=== PATIENT | female | born 1960 | race Caucasian/White ===

== ENCOUNTER 2019-09-18 10:53 | Emergency (ER) | payer SELFPAY ==
[~2019-09-18] VITALS: Ht 154.9 cm; Wt 53.5 kg
--- OUTSIDE RECORDS SUMMARY | 2019-09-18 10:56 | XMS REPORT | Continuity of Care Document ---
Author Author [facility] t Organization [facility] Address [address] [place] [address] Phone Unavailable Care Team Providers Care Quality Supervisor Name Role Phone Unavailable Unavailable Payers Payer Name Policy Type Policy Number Effective Date Expiration Date S ource Problems This patient has no known problems. Allergies, Adverse Reactions, Alerts Allergy Name Allergy Type Status Severity Reaction(s) Onset Date Inacti ve Date Treating Clinician Comments Source No Known Allergies DA Active U 2017-10-30 00:00:00 [facility] Medications This patient has no known medications. Procedures This patient has no known procedures. Results Test Description Test Time Test Comments Results Result Comments Source CHLAMYDIA GC DNA BY PCR 2019-02-02 14:09:00 Test Item C. TRACHOMATIS DNA BY PCR (test code = CHLAMTDNA) Negative Nega tive N. GONORRHOEAE DNA BY PCR (test code = NGONORDNA) Negative Nega tive Performed At: [facility] [place] [address] [id number] gabi Mcdonough MD Ph:[phone] COMPREHENSIVE METABOLIC [id number] 11:41:00* Test Item Value Reference Range Interpretation Comments SODIUM (test code = NA) 136 mEq/L 134-147 N POTASSIUM (test code = K) 3.7 mEq/L 3.4-5.0 N CHLORIDE (test code = CL) 101 mEq/L 100-108 N CARBON DIOXIDE (test code = CO2) 28 mEq/L 21-33 N ANION GAP (test code = GAP) 11 0-20 N GLUCOSE (test code = GLU) 98 mg/dL 70-110 N BLOOD UREA NITROGEN (test code = BUN) 27 mg/dL 7-18 H GLOMERULAR FILTRATION RATE (test code = GFR) 64.5 90-95 L Units of measure = ml/min/1.73 m2 CREATININE (test code = CREAT) 0.9 mg/dL 0.6-1.3 N TOTAL PROTEIN (test code = PROT) 8.0 g/dL 6.4-8.2 N ALBUMIN (test code = ALB) 4.20 g/dL 3.4-5.0 N CALCIUM (test code = CA) 9.7 mg/dL 8.0-10.5 N BILIRUBIN TOTAL (test code = BILT) 0.6 MG/DL <1.5 N SGOT/AST (test code = AST) 13 IUnit/L 15-37 L SGPT/ALT (test code = ALT) 14 IUnit/L 15-65 L ALKALINE PHOSPHATASE TOTAL (test code = ALKP) 121 IUnit/L 20-125 N [id number] 11:41:00* Test Item Value Reference Range Interpretation Comments LIPASE (test code = LIP) 94 IUnit/L 73-393 N HCG SERUM [id number] 11:41:00* Test Item Value Reference Range Interpretation Comments HCG SERUM QUAL (test code = HCGQL) SERUM NEGATIVE NEGATIVE - CT ABD PELVIS W/O [id number] 11:39:00 Name: EMILIE CAREY [facility] : 1960 Age/S: 58 / F [address] [place] [address] Unit #: [id number] Loc: [place] [address] Phys: Maren Tong PLATFORM LOADER Acct: [id number] Dis Date: Status: REG ER PHONE #: [phone] Exam Date: 01/28/2019 1054 FAX #: [phone] Reason: L FLANK LLQ PAIN, DYURIA EXAMS: CPT CODE: [id number] CT ABD PELVIS W/O CONT 31316 PROCEDURE: CT ABDOMEN AND PELVIS WITHOUT CONTRAST (RENAL STONE CT) INDICATION: Left flank and left lower quadrant pain. Dysuria. History of stones. COMPARISON: 10/15/2017 TECHNIQUE: Noncontrasted helical imaging was performed diaphragm through the symphysis as a renal stone protocol with multiplanar reconstructions. CT imaging performed at this location utilizes radiation dose optimization techniques which include one or more of the following: -Automated exposure control -Adjustment of the mA and/or kV according to patient size -Use of iterative reconstruction technique CT Radiation Dose DLP 513.18 mGy-cm LIMITATIONS: Evaluation of abdominal viscera and vascular structures may be limited by the lack of intravenous contrast, which is standard for urinary calculus assessment CT. FINDINGS: KIDNEYS: There is a single nonobstru cting calcification within the mid left renal sinus, 2 mm diameter. There are no ureteral calculi. No hydronephrosis or perinephric edema. The re nal contours are normal. There is a single diminutive exophytic low-atten uation lesion lateral cortex left kidney approximately 5 mm diameter, too small to characterize, stable and compatible with benign cyst. LOWER CHEST: The lung bases are clear. There is a small sliding-type h iatal hernia. Pathologic wall thickening of the distal esophagus not excl uded. No regional inflammation. Subcentimeter paraesophageal nodes are n ot enlarged by size criteria and stable. LIVER: Normal. BILIARY TREE: No biliary dilatation. GALLBLADDER: Normal. SPLEEN: Spleen is normal. Stable accessory splenic lobule. PANCREAS: Mild fatty involutional changes without focal abnormality. PAGE 1 Signed Report (CONTINUED) Name: EMILIE CAREY [facility] : 1960 Age/S: 58 / F [address] [place] [address] Unit #: [id number] Loc: [place] [address] Phys: Cary Tong PLATFORM LOADER Acct: [id number] Di s Date: Status: REG ER PHONE #: Exam Date: 01/28/2019 1055 FAX #: Reason: L FLANK LLQ PAIN, DYURIA EXAMS: CPT CODE: [id number] CT ABD PELVIS W/O CONT 02441 <Continued> ADRENALS: Normal. BOWEL: Small sliding-type hiatal hernia. The stomach is otherwise unremarkable. Small diverticulum 2nd duodenum without inflammation. The small bowel is otherwise unremarkable. The appendix is normal. Scattered fecal material throughout the colon. Scattered left- sided colonic diverticula. No inflammatory changes. PERITONEUM: No free intraperitoneal fluid or air. RETROPERITONEUM: No adenopathy. The aorta is normal. PELVIS: The adnexa are normal by CT. The uterine body is unremarkable. Subjective fullness of the cer vix with slight stranding of regional tissue planes. No adenopathy by siz e criteria. The urinary bladder is contracted, otherwise unremarkable. MUSCULOSKELETAL: The skeleton is intact. IMPRESSION: 1. Nonobstructing left nephrolithiasis. No ureteral calculus or hydronephrosis to indicate urinary obstruction as a source of the pa tient's symptoms. 2. Scattered left-sided colonic diverticula without e vidence for diverticulitis. 3. Nonspecific fullness of the cerv ix with stranding of regional tissue planes. Cervical neoplasm and infl ammation remain in the differential. SYRUPER consultation is suggested. 4. Small sliding-type hiatal hernia. Wall thickening of the distal esophagus not excluded. This may be physiologic. Esophagitis in the differential. Please correlate clinically with further imaging as kareem dozier. A verbal report was called to Maren Tong NP on 11:39 AM. SL: RAZ at [phone] Reported and signed b y: Malcolm Anderson M.D. PAGE 2 Signed Report (CONTINUED) Name: EMILIE CAREY [facility] Reed Snowden : 1960 Age/S: 58 / F [address] [place] [address] Unit #: [id number] Loc: [place] [address] Phys: Maren Tong NP Acct: [id number] Dis Date: Status: REG ER PHONE #: [phone] Exam Date: 01/28/2019 1054 FAX #: [phone] Reason: L FLANK LLQ PAIN, DYURIA EXAMS: CPT CODE: [id number] CT ABD PELVIS W/O CONT 23876 < Continued> CC: Maren Tong NP Technologist:RT Tamela(R)(CT) CTDI: DLP: Trnscb Date/Time: 01/28/2019 (1137) Poonam Orig Print D/T: S: 01/28/2019 (1842) PAGE 3 Signed Report COMPREHENSIVE METABOLIC PANEL 2019-01-28 11:35:00* Test Item Value Reference Range Interpretation Comments SODIUM (test code = NA) 136 mEq/L 134-147 N POTASSIUM (test code = K) 3.7 mEq/L 3.4-5.0 N CHLORIDE (test code = CL) 101 mEq/L 100-108 N CARBON DIOXIDE (test code = CO2) 28 mEq/L 21-33 N ANION GAP (test code = GAP) 11 0-20 N GLUCOSE (test code = GLU) 98 mg/dL 70-110 N BLOOD UREA NITROGEN (test code = BUN) 27 mg/dL 7-18 H GLOMERULAR FILTRATION RATE (test code = GFR) 90-95 CREATININE (test code = CREAT) mg/dL 0.6-1.3 TOTAL PROTEIN (test code = PROT) g/dL 6.4-8.2 ALBUMIN (test code = ALB) 4.20 g/dL 3.4-5.0 N CALCIUM (test code = CA) 9.7 mg/dL 8.0-10.5 N BILIRUBIN TOTAL (test code = BILT) MG/DL <1.5 SGOT/AST (test code = AST) IUnit/L 15-37 SGPT/ALT (test code = ALT) IUnit/L 15-65 ALKALINE PHOSPHATASE TOTAL (test code = ALKP) IUnit/L 20-125 [id number] 11:35:00* Test Item Value Reference Range Interpretation Comments LIPASE (test code = LIP) IUnit/L 73-393 HCG SERUM [id number] 11:35:00* Test Item Value Reference Range Interpretation Comments HCG SERUM QUAL (test code = HCGQL) SERUM NEGATIVE NEGATIVE COMPREHENSIVE METABOLIC [id number] 11:34:00* Test Item Value Reference Range Interpretation Comments SODIUM (test code = NA) mEq/L 134-147 POTASSIUM (test code = K) mEq/L 3.4-5.0 CHLORIDE (test code = CL) mEq/L 100-108 CARBON DIOXIDE (test code = CO2) mEq/L 21-33 ANION GAP (test code = GAP) 0-20 GLUCOSE (test code = GLU) mg/dL 70-110 BLOOD UREA NITROGEN (test code = BUN) mg/dL 7-18 GLOMERULAR FILTRATION RATE (test code = GFR) 90-95 CREATININE (test code = CREAT) mg/dL 0.6-1.3 TOTAL PROTEIN (test code = PROT) g/dL 6.4-8.2 ALBUMIN (test code = ALB) g/dL 3.4-5.0 CALCIUM (test code = CA) mg/dL 8.0-10.5 BILIRUBIN TOTAL (test code = BILT) MG/DL <1.5 SGOT/AST (test code = AST) IUnit/L 15-37 SGPT/ALT (test code = ALT) IUnit/L 15-65 ALKALINE PHOSPHATASE TOTAL (test code = ALKP) IUnit/L 20-125 [id number] 11:34:00* Test Item Value Reference Range Interpretation Comments LIPASE (test code = LIP) IUnit/L 73-393 HCG SERUM [id number] 11:34:00* Test Item Value Reference Range Interpretation Comments HCG SERUM QUAL (test code = HCGQL) SERUM NEGATIVE NEGATIVE CBC W/AUTO [id number] 11:27:00* Test Item Value Reference Range Interpretation Comments WHITE BLOOD CELL (test code = WBC) 10.12 x10 3/uL 4.5-11.0 N RED BLOOD CELL (test code = RBC) 4.86 x10 6/uL 3.54-5.02 N HEMOGLOBIN (test code = HGB) 15.1 g/dL 11.0-15.0 H HEMATOCRIT (test code = HCT) 44.6 % 33.0-45.0 N MEAN CELL VOLUME (test code = MCV) 91.8 fL 81.0-99.0 N MEAN CELL HGB (test code = MCH) 31.1 pg 27.0-33.0 N MEAN CELL HGB CONCETRATION (test code = MCHC) 33.9 g/dL 33.0-37. 0 N RED CELL DISTRIBUTION WIDTH CV (test code = RDW) 12.5 % 11.5- 14.5 N RED CELL DISTRIBUTION WIDTH SD (test code = RDW-SD) 42.5 fL 37 .0-54.0 N PLATELET COUNT (test code = PLT) 391 x10 3/uL 150-400 N MEAN PLATELET VOLUME (test code = MPV) 10.7 fL 7.0-9.0 H NEUTROPHIL % (test code = NT%) 74.5 % 56.0-77.0 N IMMATURE GRANULOCYTE % (test code = IG%) 0.3 % 0.0-2.0 N LYMPHOCYTE % (test code = LY%) 16.4 % 14.0-32.0 N MONOCYTE % (test code = MO%) 6.4 % 4.8-9.0 N EOSINOPHIL % (test code = EO%) 1.0 % 0.3-3.7 N BASOPHIL % (test code = BA%) 1.4 % 0.0-2.0 N NUCLEATED RBC % (test code = NRBC%) 0.0 % 0-0 N NEUTROPHIL # (test code = NT#) 7.54 x10 3/uL 2.0-7.6 N IMMATURE GRANULOCYTE # (test code = IG#) 0.03 x10 3/uL 0.00-0.03 N LYMPHOCYTE # (test code = LY#) 1.66 x10 3/uL 1.0-3.8 N MONOCYTE # (test code = MO#) 0.65 x10 3/uL 0.1-0.8 N EOSINOPHIL # (test code = EO#) 0.10 x10 3/uL 0.0-0.2 N BASOPHIL # (test code = BA#) 0.14 x10 3/uL 0.0-0.2 N NUCLEATED RBC # (test code = NRBC#) 0.00 x10 3/uL 0.0-0.1 N MANUAL DIFF REQUIRED (test code = MDIFF) NO UA RFLX MICR CULT IF [id number] 11:13:00* Test Item Value Reference Range Interpretation Comments UA COLOR (test code = COLU) YELLOW YEL/STRAW UA APPEARANCE (test code = APPU) SL CLOUDY CLEAR UA GLUCOSE DIPSTICK (test code = DGLUU) NEGATIVE NEGATIVE UA BILIRUBIN DIPSTICK (test code = BILU) NEGATIVE NEGATIVE UA KETONE DIPSTICK (test code = KETU) TRACE NEGATIVE A UA SPECIFIC GRAVITY (test code = SGU) 1.024 1.005-1.030 N UA BLOOD DIPSTICK (test code = CALISTA) 3+ NEGATIVE A UA PH DIPSTICK (test code = ISAAC) 7.0 5.0-7.0 N UA PROTEIN DIPSTICK (test code = PROU) 1+ NEGATIVE A UA UROBILINIOGEN DIPSTICK (test code = URO) 0.2 mg/dL 0.2-1.0 UA NITRITE DIPSTICK (test code = MEET) NEGATIVE NEGATIVE UA LEUKOCYTE ESTERASE DIPSTICK (test code = LEUU) 2+ NEGA TIVE A UA WBC (test code = WBCU) >50 WBC/HPF 0-3 A UA RBC (test code = RBCU) >50 RBC/HPF 0-3 A UA WBC NO REFLEX (test code = WBCUCL) >50 WBC/HPF 0-3 A UA BACTERIA (test code = BACU) TRACE /HPF NONE SEEN UA SQUAMOUS CELLS (test code = SQU) 0-5 /HPF NONE SEEN UA MUCUS (test code = MUCU) 1+ /LPF NONE SEEN Indication for culture: Dysuria/FrequencySpecimen Description: CLEAN CATCH
[2019-09-18] MEDS ORDERED: PANTOPRAZOLE 40 MG 10ML VIAL IV STA (11:21)
[2019-09-18] MEDS ORDERED: ONDANSETRON HCL INJ 2MG/ML 2ML 2 MG/ML VIAL IV STA (11:21)
[2019-09-18] MEDS ORDERED: SODIUM CHLORIDE 0.9% 1000ML 1,000 ML IV STA (11:21)
[2019-09-18 11:55] LABS: BASOPHILS % 0.8 % (0.0-1.0); EOSINOPHILS # (AUTO) 0.1 (0.0-0.4); EOSINOPHILS % 1.2 % (0.0-6.0); HEMATOCRIT 28.2 % (34.2-44.1); HEMOGLOBIN 9.1 g/dL (12.0-16.0); LYMPHOCYTES % 19.1 % (18.0-39.1); MEAN CORPUSCULAR HEMOGLOBIN 27.6 pg (28-32); MEAN CORPUSCULAR HGB CONC 32.3 g/dL (31-35); MEAN CORPUSCULAR VOLUME 85.5 fL (81-99); MONOCYTES # (AUTO) 0.5 (0.2-0.8); MONOCYTES % 10.5 % (4.4-11.3); NEUTROPHILS # (AUTO) 3.4 (2.1-6.9); NEUTROPHILS % 66.8 % (38.7-80.0); PLATELET COUNT 279 x10e3/uL (140-360); RED CELL DISTRIBUTION WIDTH 15.1 % (11.7-14.4)
[2019-09-18 11:55] LABS: BILIRUBIN,URINE SMALL (NEGATIVE); CLARITY,URINE SL CLOUDY (CLEAR); COLOR,URINE YELLOW (YELLOW); KETONES,URINE 1+ (NEGATIVE); NITRITE,URINE NEGATIVE (NEGATIVE); PROTEIN,URINE DIPSTICK 2+ (NEGATIVE)
[2019-09-18 11:56] LABS: LEUKOCYTE ESTERASE ,URINE SMALL (NEGATIVE)
[2019-09-18 12:04] LABS: BACTERIA,URINE FEW /HPF; EPITHELIAL CELLS,URINE FEW /LPF
[2019-09-18 12:05] LABS: INR 0.98; PROTHROMBIN TIME 13.6 seconds (11.9-14.5)
[2019-09-18 12:05] LABS: MUCUS,URINE FEW (RARE)
[2019-09-18 12:06] LABS: PARTIAL THROMBOPLASTIN TIME 20.5 seconds (23.8-35.5)
[2019-09-18 12:14] LABS: ALANINE AMINOTRANSFERASE 11 IU/L (0-55); ALBUMIN 2.5 g/dL (3.5-5.0); ALBUMIN/GLOBULIN RATIO 0.6 (0.8-2.0); ALKALINE PHOSPHATASE 74 IU/L (40-150); AMYLASE 17 U/L (25-125); BLOOD UREA NITROGEN 10 mg/dL (7-26); BUN/CREATININE RATIO 13 (6-25); CALCIUM 8.8 mg/dL (8.4-10.2); CARBON DIOXIDE 26 mmol/L (22-29); CHLORIDE 95 mmol/L (98-107); CREATINE KINASE 9 IU/L (29-168); CREATININE, SERUM 0.75 mg/dL (0.57-1.11); EST GLOMERULAR FILTRATION RATE > 60 ML/MIN (60-); GLUCOSE 98 mg/dL (74-118); LIPASE 5 U/L (8-78); MAGNESIUM 1.3 MG/DL (1.3-2.1); SODIUM 136 mmol/L (136-145)
[2019-09-18] MEDS ORDERED: IOPAMIDOL 370 MG/ML 200 ML INFUS..BTL INJ ONE (12:53)
[2019-09-18] MEDS ORDERED: SODIUM CHLORIDE 0.9% 50ML 50 ML ONE (12:53)
[2019-09-18] MEDS ORDERED: CEFTRIAXONE SOD 1 GM/NS 50 ML 50 ML IV ONE (13:30)
--- NOTE | 2019-09-18 14:02 | Diagnostic Imaging Report ---
EXAM: CT Abdomen and Pelvis WITH contrast INDICATION: Nausea, vomiting, abdominal pain, history of cervical cancer. COMPARISON: [facility] CT abdomen/pelvis dated 08-21-2019. TECHNIQUE: Abdomen and pelvis were scanned utilizing a multidetector helical scanner from the lung base to the pubic symphysis after administration of IV contrast. Coronal and sagittal reformations were obtained. Routine protocol was performed. Scan was performed during portal venous phase. IV CONTRAST: 100 cc of Isovue-370 ORAL CONTRAST: None COMPLICATIONS: None RADIATION DOSE: Total DLP: 205.5 mGy*cm Estimated effective dose: (DLP x 0.015 x size factor) mSv CTDIvol has been reviewed. It is below the limits set by the Radiation Protocol Committee (RPC). FINDINGS: LOWER THORAX: There is a 1 cm right lower lobe solid nodule on series 2, image 5, slightly increased from the prior study when it measured 0.9 cm. HEPATOBILIARY: No evidence of focal lesion. No biliary ductal dilation. GALLBLADDER: No radio-opaque stones or sludge. No wall thickening. SPLEEN: No splenomegaly. PANCREAS: No focal masses or ductal dilatation. Fatty atrophy. ADRENALS: No adrenal nodules KIDNEYS/URETERS: No evidence of hydronephrosis, solid mass, or stone. Subcentimeter left midpole renal hypodensity is too small to characterize, but likely represents a cyst.. There is a left-sided percutaneous nephroureteral stent with proximal and distal pigtails in appropriate position. GI TRACT: No evidence of wall thickening or distension. Normal appendix. PELVIC ORGANS/BLADDER: Interval removal of Mohan catheter. Accounting for differences in technique, there is been interval decrease in size of a dominant heterogeneous cervical mass which invades the uterus, which measures up to 4.6 x 4.2 cm x 6 cm, previously 4.6 x 5.0 x 8 cm (AP x TV x SI). There is a small amount of internal fluid and punctate foci of air within the mass as seen on series 2, image 78. Likely communicating with this mass, there is a left adnexal mass which measures up to 3.4 cm, slightly increased in size from prior study, when it measured 2.8 cm. LYMPH NODES: No lymphadenopathy. VESSELS: Unremarkable. PERITONEUM / RETROPERITONEUM: No free air or fluid. BONES AND SOFT TISSUES: Unremarkable. CONCLUSION: History of metastatic cervical cancer. Slight interval decrease in size of dominant cervical mass with slight interval increase in size of left adnexal component of the mass communicating with the dominant mass. Trace internal fluid versus necrosis within the mass is unchanged, however there are now punctate foci of air within the mass, which may reflect posttreatment changes, air within the cervical canal, or infectious process. There is no drainable fluid collection. Stable to slightly increased size of right lower lobe nodule, consistent with metastasis. Left percutaneous nephroureteral catheter in place without hydronephrosis. Signed by: Dr. Sultana Scruggs MD on 09/18/2019 1:58 PM
--- NOTE | 2019-09-18 14:15 | Emergency Department Note ---
History of Present Illnes History of Present Illness Chief Complaint: Abdominal Complaints History of Present Illness This is a 59 year old female PATIENT IN FROM HOME WITH COMPLAINTS OF NAUSEA AND VOMITING, ABDOMINAL AND LOWER BACK PAIN FOR ALMOST 2 WEEKS (SINCE CHEMO) WORSE SINCE GETTING OUT OF [facility] 4 DAYS AGO; PATIENT WITH HISTORY OF CERVICAL CANCER WITH METS - RECENT CHEMO TREATMENT 2 WEEKS AGO. KENIA ENT STATES THAT SHE USUALLY IS SEEN AT [facility]. 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 Arrival Mode: [facility] Treatment TESTER FOOD PRODUCTS: IV Additional Treatment TESTER FOOD PRODUCTS: 4 MG ZOFRAN IV Take Out Waiter/Waitress Required: No Onset (how long ago): week(s) (2) Location: ABD AND LOWER BACK Quality: PAIN Radiation: non-radiation Severity: severe Onset quality: gradual Duration (how long): week(s) Timing of current episode: intermittent Progression: worsening Chronicity: recurrent Context: recent illness Relieving factors: none Exacerbating factors: none Associated symptoms: nausea/vomiting, weakness, other (ABDOMINAL PAIN AND LBP) Past Medical/Family History Physician Review I have reviewed the patient's past medical and family history. Any updates have been documented here. Past Medical History Recent Fever: No Clinical Suspicion of Infectio: No New/Unexplained Change in Ment: No Past Medical History: Cancer Other Medical History: CERVICAL CANCER WITH METS TO LUNGS Other Surgery: LEFT NEPHROSTOMY DUE TO COMPRESSION FROM CERVICAL CANCER Social History Smoking Cessation: Current every day smoker Counseling Performed: Yes Alcohol Use: None Any Illegal Drug Use: No TB Exposure/Symptoms: No Physically hurt or threatened: No Other Last Tetanus: UNKNOWN Any Pre-Existing Lines (PICC,: No Is patient up to date on immun: Yes Last Flu: utd Last Pneumovax: utd Review of Systems Review of Systems Constitutional: no symptoms EENTM: no symptoms Cardiovascular: no symptoms Respiratory: no symptoms Gastrointestinal: as per HPI, abdominal pain, nausea, vomiting Genitourinary: no symptoms Musculoskeletal: other (LBP) Neurological: no symptoms Psychological: no symptoms Endocrine: no symptoms Hematological/Lymphatic: no symptoms Review of other systems All other systems reviewed and negative. Physical Exam Related Data Allergies: Coded Allergies: No Known Allergies (Unverified , 09/18/19) Triage Vital Signs Vital Signs Date Time Temp Pulse Resp B/P (MAP) Pulse Ox O2 Delivery O2 Flow Rate FiO2 09/18/19 10:53 98.9 77 16 126/84 100 Vital signs reviewed: Yes Physical Exam CONSTITUTIONAL Constitutional: well-developed, well-nourished HENT HENT: normocephalic, atraumatic, oropharynx clear/moist, nose normal HENT L/R: left ext ear normal, right ext ear normal EYES Eyes: PERRL, conjunctivae normal NECK Neck: ROM normal PULMONARY Pulmonary: effort normal, breath sounds normal CARDIOVASCULAR Cardiovascular: regular rhythm, heart sounds normal, capillary refill normal, normal rate GASTROINTESTINAL Abdominal: soft, bowel sounds normal, tender (MILD DIFFUSE TENDERNESS WITHOUT R/G); left CVA tenderness, right CVA tenderness GENITOURINARY Genitourinary: exam deferred SKIN Skin: warm, dry MUSCULOSKELETAL Musculoskeletal: ROM normal, other (NO SPINE TENDERNESS) NEUROLOGICAL Neurological: alert, oriented x 3, no gross motor or sensory deficits PSYCHOLOGICAL Psychological: mood/affect normal, judgement normal Results Laboratory Result Diagram: 09/18/19 1105 09/18/19 1105 Laboratory Laboratory Tests Test 09/18/19 11:05 09/18/19 10:30 White Blood Count 5.12 x10e3/uL (4.8-10.8) Red Blood Count 3.30 x10e6/uL (3.6-5.1) Hemoglobin 9.1 g/dL (12.0-16.0) Hematocrit 28.2 % (34.2-44.1) Mean Corpuscular Volume 85.5 fL (81-99) Mean Corpuscular Hemoglobin 27.6 pg (28-32) Mean Corpuscular Hemoglobin Concent 32.3 g/dL (31-35) Red Cell Distribution Width 15.1 % (11.7-14.4) Platelet Count 279 x10e3/uL (140-360) Neutrophils (%) (Auto) 66.8 % (38.7-80.0) Lymphocytes (%) (Auto) 19.1 % (18.0-39.1) Monocytes (%) (Auto) 10.5 % (4.4-11.3) Eosinophils (%) (Auto) 1.2 % (0.0-6.0) Basophils (%) (Auto) 0.8 % (0.0-1.0) Neutrophils # (Auto) 3.4 (2.1-6.9) Lymphocytes # (Auto) 1.0 (1.0-3.2) Monocytes # (Auto) 0.5 (0.2-0.8) Eosinophils # (Auto) 0.1 (0.0-0.4) Basophils # (Auto) 0.0 (0.0-0.1) Absolute Immature Granulocyte (auto 0.08 x10e3/uL (0-0.1) Prothrombin Time 13.6 seconds (11.9-14.5) Prothromb Time International Ratio 0.98 Activated Partial Thromboplast Time 20.5 seconds (23.8-35.5) Sodium Level 136 mmol/L (136-145) Potassium Level 4.0 mmol/L (3.5-5.1) Chloride Level 95 mmol/L (98-107) Carbon Dioxide Level 26 mmol/L (22-29) Anion Gap 19.0 mmol/L (8-16) Blood Urea Nitrogen 10 mg/dL (7-26) Creatinine 0.75 mg/dL (0.57-1.11) Estimat Glomerular Filtration Rate > 60 ML/MIN (60-) BUN/Creatinine Ratio 13 (6-25) Glucose Level 98 mg/dL (74-118) Calcium Level 8.8 mg/dL (8.4-10.2) Magnesium Level 1.3 MG/DL (1.3-2.1) Total Bilirubin 0.3 mg/dL (0.2-1.2) Aspartate Amino Transf (AST/SGOT) 25 IU/L (5-34) Alanine Aminotransferase (ALT/SGPT) 11 IU/L (0-55) Alkaline Phosphatase 74 IU/L (40-150) Creatine Kinase 9 IU/L (29-168) Creatine Kinase MB 0.30 ng/mL (0-5.0) Troponin I < 0.001 ng/mL (0-0.300) Total Protein 6.7 g/dL (6.5-8.1) Albumin 2.5 g/dL (3.5-5.0) Globulin 4.2 g/dL (2.3-3.5) Albumin/Globulin Ratio 0.6 (0.8-2.0) Amylase Level 17 U/L (25-125) Lipase 5 U/L (8-78) Urine Color Yellow (YELLOW) Urine Clarity Sl cloudy (CLEAR) Urine pH 7 (5 - 7) Urine Specific [place] 1.025 (1.010-1.025) Urine Protein 2+ (NEGATIVE) Urine Glucose (UA) Negative (NEGATIVE) Urine Ketones 1+ (NEGATIVE) Urine Blood Large (NEGATIVE) Urine Nitrite Negative (NEGATIVE) Urine Bilirubin Small (NEGATIVE) Urine Urobilinogen 4.0 mg/dL (0.2 - 1) Urine Leukocyte Esterase Small (NEGATIVE) Urine RBC 11-20 /HPF (0-5) Urine WBC 6-10 /HPF (0-5) Urine Epithelial Cells Few /LPF (NONE) Urine Bacteria Few /HPF (NONE) Urine Mucus Few (RARE) Lab results reviewed: Yes Imaging Imaging results reviewed: Yes Impressions EXAM: CT Abdomen and Pelvis WITH contrast INDICATION: Nausea, vomiting, abdominal pain, history of cervical cancer. COMPARISON: [facility] CT abdomen/pelvis dated 08-21-2019. TECHNIQUE: Abdomen and pelvis were scanned utilizing a multidetector helical scanner from the lung base to the pubic symphysis after administration of IV contrast. Coronal and sagittal reformations were obtained. Routine protocol was performed. Scan was performed during portal venous phase. IV CONTRAST: 100 cc of Isovue-370 ORAL CONTRAST: None COMPLICATIONS: None RADIATION DOSE: Total DLP: 205.5 mGy*cm Estimated effective dose: (DLP x 0.015 x size factor) mSv CTDIvol has been reviewed. It is below the limits set by the Radiation Protocol Committee (RPC). FINDINGS: LOWER THORAX: There is a 1 cm right lower lobe solid nodule on series 2, image 5, slightly increased from the prior study when it measured 0.9 cm. HEPATOBILIARY: No evidence of focal lesion. No biliary ductal dilation. GALLBLADDER: No radio-opaque stones or sludge. No wall thickening. SPLEEN: No splenomegaly. PANCREAS: No focal masses or ductal dilatation. Fatty atrophy. ADRENALS: No adrenal nodules KIDNEYS/URETERS: No evidence of hydronephrosis, solid mass, or stone. Subcentimeter left midpole renal hypodensity is too small to characterize, but likely represents a cyst.. There is a left-sided percutaneous nephroureteral stent with proximal and distal pigtails in appropriate position. GI TRACT: No evidence of wall thickening or distension. Normal appendix. PELVIC ORGANS/BLADDER: Interval removal of Mohan catheter. Accounting for differences in technique, there is been interval decrease in size of a dominant heterogeneous cervical mass which invades the uterus, which measures up to 4.6 x 4.2 cm x 6 cm, previously 4.6 x 5.0 x 8 cm (AP x TV x SI). There is a small amount of internal fluid and punctate foci of air within the mass as seen on series 2, image 78. Likely communicating with this mass, there is a left adnexal mass which measures up to 3.4 cm, slightly increased in size from prior study, when it measured 2.8 cm. LYMPH NODES: No lymphadenopathy. VESSELS: Unremarkable. PERITONEUM / RETROPERITONEUM: No free air or fluid. BONES AND SOFT TISSUES: Unremarkable. CONCLUSION: History of metastatic cervical cancer. Slight interval decrease in size of dominant cervical mass with slight interval increase in size of left adnexal component of the mass communicating with the dominant mass. Trace internal fluid versus necrosis within the mass is unchanged, however there are now punctate foci of air within the mass, which may reflect posttreatment changes, air within the cervical canal, or infectious process. There is no drainable fluid collection. Stable to slightly increased size of right lower lobe nodule, consistent with metastasis. Left percutaneous nephroureteral catheter in place without hydronephrosis. Signed by: Dr. Sultana Scruggs MD on 09/18/2019 1:58 PM Diagnostics Tests Diagnostic test(s) reviewed: Yes Procedures 12 Lead ECG Interpretation Take Out Waiter/Waitress: Interpreted by ED physician Date: Sep 18, 2019 Time: 11:05 Rhythm: sinus rhythm QRS axis: normal ST segments normal: Yes T wave depression: II, III, aVF, V3, V4, V5, V6 Q waves: V1, V2 Clinical Impression: non-specific ECG Critical Care Time Subsequent provider I assumed direction of critical care for this patient from another provider of my specialty. Assessment & Plan Reassessment Reassessment N/V X 2 WEEKS AND ABD PAIN H/O CERVICAL CA RECENT CHEMO AND RECENT ADMISSION AT [facility] - CHECK CBC, CHEM'S, CARDIAC ENZYMES, MAG, UA, CXR, CT ABD/PELVIS - R/O ELECTROLYTE ABNL, DEHYDRATION, RENAL INSUFF, SBO/ILEUS, PNEUMONIA, UTI Assessment & Plan Final Impression: (1) Vomiting (2) Abdominal pain (3) Cervical cancer (4) UTI (urinary tract infection) Assessment & Plan DC HOME ZOFRAN ODT, BENTYL, PHENERGAN SUPP, F/U PCP TOMORROW. PT HAS OMNICEF - ADVISED TO CONTINUE FULL COURSE Depart Disposition: HOME, SELF-CARE Last Vital Signs Date Time Temp Pulse Resp B/P (MAP) Pulse Ox O2 Delivery O2 Flow Rate FiO2 09/18/19 10:53 98.9 77 16 126/84 100 Medications in the ED Pantoprazole Sodium 40 mg ONCE STAT IV Last administered on 09/18/19at 12:42; Admin Dose 40 MG; Start 09/18/19 at 11:21; Stop 09/18/19 at 11:34; Status DC Ondansetron HCl 4 mg ONCE STAT IV Last administered on 09/18/19at 12:42; Admin Dose 4 MG; Start 09/18/19 at 11:21; Stop 09/18/19 at 11:34; Status DC Sodium Chloride 1,000 ml @ 0 mls/hr Q0M STAT IV Last administered on 09/18/19at 11:45; Admin Dose 999 MLS/HR; Start 09/18/19 at 11:21; Stop 09/18/19 at 11:25; Status DC Ceftriaxone Sodium 50 ml @ 100 mls/hr ONCE ONCE IV Last administered on 09/18/19at 13:01; Admin Dose 100 MLS/HR; Start 09/18/19 at 13:30; Stop 09/18/19 at 13:59 Sodium Chloride 50 ml @ ud STK-MED ONCE .ROUTE ; Start 09/18/19 at 12:53; Stop 09/18/19 at 12:48; Status DC Iopamidol 74,000 mg STK-MED ONCE INJ ; Start 09/18/19 at 12:53; Stop 09/18/19 at 12:48; Status DC SANDI ROBB MD Sep 18, 2019 14:15
[2019-09-18] MEDS ORDERED: DICYCLOMINE HCL 20 MG/2 ML VIAL IM ONE (15:00)
== END 2019-09-18 15:26 | disposition home or self-care (01) ==
LOC: ER 10:53
DX: R53.1 Weakness (principal); R11.2 Nausea with vomiting, unspecified; R10.9 Unspecified abdominal pain; M54.5 Low back pain; N39.0 Urinary tract infection, site not specified; C78.00 Secondary malignant neoplasm of unspecified lung; Z79.899 Other long term (current) drug therapy; Z85.41 Personal history of malignant neoplasm of cervix uteri
CPT/HCPCS: 36415; 74177; 80053; 81001; 82150; 82550; 82553; 83690; 83735; 84484; 85025; 85610; 85730; 87086; 93005; 99284; C9113; J0500; J0696; J2405; Q9967